=== PATIENT | female | born 1990 | race Caucasian/White ===

== ENCOUNTER 2017-10-11 20:49 | Emergency (ER) | payer OTHER ==
[~2017-10-11] VITALS: Ht 172.7 cm; Wt 59.0 kg
--- NOTE | 2017-10-11 22:04 | NUR ---
MARLO OLIVEIRA AT BEDSIDE FOR MSE.
[2017-10-11 22:25] LABS: *BILIRUBIN,URIN NEGATIVE (NEGATIVE); *BLOOD, URINE 1+ (NEGATIVE); *CLARITY,URINE SLIGHTLY CLOUDY (CLEAR); *COLOR,URINE YELLOW (YELLOW); *KETONES,URINE NEGATIVE (NEGATIVE); *PROTEIN,URINE TRACE (NEGATIVE); *UROBILINOGEN,URINE 0.2 E.U./dl (NORMAL); LEUKOCYTE ESTERASE ,URINE 2+ (NEGATIVE); NITRITE, URINE NEGATIVE (NEGATIVE); UGLUCOSE NEGATIVE (NEGATIVE)
[2017-10-11 22:34] LABS: RBC,URINE 0-3 /HPF (0-3)
[2017-10-11 22:35] LABS: BACTERIA,URINE FEW /HPF (NONE SEEN); SQUAMOUS EPITHELIAL CELL,UR FEW /HPF (NONE SEEN)
[2017-10-11 22:36] LABS: *URINE HCG, QUAL NEGATIVE (NEGATIVE)
[2017-10-11] MEDS ORDERED: AZITHROMYCIN 250 MG TABLET ONE (22:42)
[2017-10-11] MEDS ORDERED: CEFTRIAXONE 500 MG VIAL ONE (22:42)
[2017-10-11] MEDS ORDERED: AZITHROMYCIN 250 MG TABLET PO ONE (22:45)
[2017-10-11] MEDS ORDERED: CEFTRIAXONE 500 MG VIAL IM ONE (22:45)
--- NOTE | 2017-10-11 22:51 | NUR ---
Patient discharged to home in stable conditon. Written and verbal after care instructions given. Patient verbalizes understanding of instructions. All belongings with pt. VSS. No acute distress notd. Pt ambulated out of ER in steady gait.
[2017-10-11 23:01] VITALS: BP 124/74
== END 2017-10-11 22:51 | disposition home or self-care (01) ==
LOC: ER 20:59
DX: N72 Inflammatory disease of cervix uteri (principal); Z88.0 Allergy status to penicillin
CPT/HCPCS: 81001; 84703; 87070; 87086; 87106; 87210; 87491; 87591; 96372; 99284; A4663; J0696; J3490; Q0144